=== PATIENT | female | born 1995 | race Caucasian/White ===

== ENCOUNTER 2018-01-08 10:26 | Inpatient (IN) | payer BC ==
[2018-01-08] MEDS ORDERED: Ondansetron HCl/PF 4 MG/2 ML Vial ONE (10:58)
[2018-01-08] MEDS ORDERED: Fentanyl 100 MCG/2 ML VIAL ONE (10:58)
[2018-01-08 11:16] LABS: ALT (SGPT) 11 U/L (8-55); AST (SGOT) 18 U/L (5-34); Albumin 3.5 g/dL (3.5-5.0); Alkaline Phosphatase 56 U/L (40-150); Anion Gap 14 mmol/L (10-20); BUN (Urea Nitrogen) 5 mg/dL (7.0-18.7); Bilirubin, Total 0.3 mg/dL (0.2-1.2); Calc. Creatinine Clearance 0 mL/min (70-130); Calcium 8.7 mg/dL (7.8-10.44); Carbon Dioxide 16 mmol/L (22-29); Chloride 108 mmol/L (98-107); Estimated GFR-MDRD Greater than 90; Globulin 3.1 g/dL (2.4-3.5); Glucose 87 mg/dL (70-105); Lipase 14 U/L (8-78); Potassium 3.9 mmol/L (3.5-5.1); Protein, Total 6.6 g/dL (6.0-8.3); Sodium 134 mmol/L (136-145)
[2018-01-08 11:20] LABS: Bilirubin Negative (Negative); Blood, Urine Negative (Negative); Glucose, Urine (Dipstick) Negative (Negative); Leukocyte Negative (Negative); Nitrite Negative (Negative); Protein, Urine (Dipstick) Negative (Neg-Trace); Urobilinogen 0.2 mg/dL (0.2-1.0)
[2018-01-08 11:22] LABS: Clarity CLEAR (Clear)
[2018-01-08 11:26] LABS: #Eosinphils 0.1 thou/uL (0.0-0.7); #Lymphocytes 2.8 thou/uL (1.20-3.40); #Monocytes 0.5 thou/uL (0.11-0.59); #Neutrophils 8.3 thou/uL (1.40-6.50); %Basophils 0.2 % (0.0-1.0); %Eosinophils 0.8 % (0.0-10.0); %Lymphocytes 23.6 % (21.0-51.0); %Monocytes 4.4 % (0.0-10.0); Hemoglobin 11.6 g/dL (12.0-16.0); Mean Corpuscular HGB CONC 35.4 g/dL (32.0-36.0); Mean Corpuscular Hemoglobin 32.2 pg (27.0-31.0); Mean Platelet Volume 8.1 fL (7.4-10.4); Platelet Count 213 thou/uL (130-400); Red Blood Cell (RBC) Count 3.59 mill/uL (4.20-5.40); White Blood Cell (WBC) Count 11.7 thou/uL (4.8-10.8)
[2018-01-08] MEDS ORDERED: Acetaminophen 500 MG TAB PO PRN (11:42)
[2018-01-08] MEDS ORDERED: Ondansetron HCl/PF 4 MG/2 ML Vial IVP PRN (11:42)
[2018-01-08] MEDS ORDERED: levETIRAcetam 500 MG/100 ML PREMIX BAG ONE (12:00)
--- NOTE | 2018-01-08 13:55 | ULT ---
BILATERAL RENAL ULTRASOUND: Date: 01/08/18 HISTORY: Patient is 26 weeks by history. Right lower quadrant pain x1 day. FINDINGS: Real-time imaging of the right and left kidneys performed. The kidneys are normal in size. The right kidney measures 9.9 cm and the left kidney measures 10.6 cm in size. Some minimal right-sided hydrone phrosis. The left kidney also shows very minimal hydronephrosis. Bilateral ureteral jets are identifi ed. No signs of any cystic or solid mass. The bladder region appears unremarkable. IMPRESSION: Minimal hydronephrosis, right greater than left, which is fairly consistent with . Bilateral ureteral jets were visualized. POS: [facility]
--- NOTE | 2018-01-08 14:07 | PDOC.LDHP ---
Labor and Delivery H&P Chief complaint: abdominal pain HPI: 22 y/o G1 at 25w5d, patient of Dr. Poon at [facility], presents with RLQ pain and seizures. Pain started 3 days ago and has gradually worsened. She was being driven to the hospital when she had a seizure in the passenger seat. Her mother then called 911, who brought her here for evaluation. Patient has a history of seizures but it has been several weeks since her last. She is not on any medications for seizures this . She does not have a neurologist in town. Denies VB or LOF. Has had some decreased FM today. Has also had some difficulty with urination today. ROS neg for HEENT, cv, pulm, gi, gu, neuro, psych, skin, musculoskeletal or constitutional symptoms other than mentioned above. OB History Details: First Current complications: other (seizure disorder) Past Medical History: Seizure disorder - no meds Asthma - no meds Current medications: pre-varinder vitamins Previous surgical history: appendectomy, other (laparoscopy for endometriosis) Allergies/Adverse Reactions: Allergies Allergy/AdvReac Type Severity Reaction Status Date / Time No Known Allergies Allergy Unverified 01/08/18 12:01 Social history: none - Physical Exam Vital signs reviewed and normal: yes General: NAD, other (appears uncomfortable) Lungs: nonlabored breathing Abdomen: gravid Extremeties: no edema FHT: category 1 (150s, mod variability, + accels, no decels) [place] contractions every: irritability - Assessment 22 y/o G1 at 25w5d with abdominal pain and seizure. No e/o preeclampsia as BPs are all wnl. Seizure likely related to known seizure disorder. Ultrasound ( fetus and renal) unremarkable other than small ?fibroid. Labs essentially unremarkable. - Plan Plan: observation in L&D, informed consent obtained -: Continue monitoring and pain management for now. Neurology recommendation is Keppra 500mg BID. Will collect FFN at this time. NPO for now but will advance diet as tolerated.
--- NOTE | 2018-01-08 14:08 | ULT ---
OB ULTRASOUND: Date: 01/08/18 HISTORY: Patient is 26 weeks and has right-sided abdomen pain. FINDINGS: Real-time imaging of the pelvis was performed. This shows a single, viable intrauterine , wh ich is in a more breech presentation. Cervical canal length is 3.7 cm. The placenta is posterior in l ocation without evidence of previa. Amniotic fluid is adequate for this stage of . Amniotic fluid index is 12.1. Along the anterior uterine wall is a 2.8 cm hypoechoic area. This could potentially represent a contr action, but I think is more likely related to a fibroid. measurements are as follows: BPD: 6.0 cm, 24 weeks/4 days HC: 23.5 cm, 25 weeks/4 days AC: 20.9 cm, 25 weeks/3 days FL: 4.6 cm, 25 weeks/2 day heart rate is 136 beats/minute. IMPRESSION: 1. Single, viable intrauterine in a breech presentation. Overall measurements correspondin g to a gestational age of 25 weeks/3 days. Estimated date of delivery is 04/20/18. 2. Placenta which is posterior in location, without evidence of previa. POS: [facility]
--- NOTE | 2018-01-08 14:25 | CON ---
DATE OF CONSULTATION: 01/08/2018 CHIEF COMPLAINT: Seizures. HISTORY OF PRESENT ILLNESS: I was asked to see this patient by the ER physician for acute onset of seizures. History is mostly given by patient and her mother. The patient has had seizures since age 13 and she had multiple seizures including one visit to ER in 2012. The patient was transferred down to [place] at [facility] at age 15 per mother and she was even intubated at that time and she was diagnosed with pseudoseizures. Since then, they have not been seeing neurologist and she has continuously had seizures since age 17 again. 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 Patient has also noticed since her pregnancies, she has had increased frequency of seizures. She is brought today because she started to have abdominal pain [place] the [place]. Mother wanted to drive her because she did not trust 911 in that area. She started to drive and patient then passed out, woke up and then started to roll her eyes back and she had a generalized tonic clonic seizure. It was different from her normal seizures. The patient was then picked up by the EMS en route to the hospital. They were going to go to [facility] which is where her production line technician is. Even in the ambulance, the patient had seizures. The patient is noted to have generalized tonic clonic seizures, sometimes she mostly has tonic seizures per mother and she even stops breathing at times and stays very still during the tonic seizures. She has not been on any anti-seizure medicines since age 15 and has not been under the care of a neurologist either and she has had a prior appendectomy and they are concerned whether there is any possibility of pain in the abdomen due to some colitis versus kidney stone. PAST MEDICAL HISTORY: She is otherwise healthy and she is about 26 weeks . SOCIAL HISTORY: She lives with her family and recently she has moved back to this area from [place]. FAMILY HISTORY: Negative for any seizures or neurological illness. Both parents were in the room during this interview. Patient does not take any medications at home. Currently, she has been given pain medications as well as IV Keppra after my discussion with the ER doctor. LABORATORY DATA: White count 11.7, RBC 3.59, hemoglobin 11.6, platelets 213. Chemistry: Sodium 134, potassium 3.9, chloride 108, BUN 5, creatinine 0.60. UA is negative. REVIEW OF SYSTEMS: Pulmonary: Negative for cough or SOB. GI: Acute abdominal pain in her right lower quadrant. HEME: Negative for any bleeding diatheses. ENDOCRINE: Negative for DM or thyroid dysfunction. : Negative for any recent urinary infection. DERMATOLOGIC: Negative for rash. NEUROLOGIC: Positive for seizures. PSYCHIATRIC: Positive for anxiety. PHYSICAL EXAMINATION: VITAL SIGNS: As noted in the ER, she was stable. She was afebrile, temperature was 98.7, blood pressure was around 115/70 when I was in the room with her, pulse rate was about 73. GENERAL: Patient is uncomfortable holds onto the right lower quadrant of the abdomen. CHEST: Clear vesicular breathing. CARDIOVASCULAR: S1, S2 heard, no murmurs. ABDOMEN: uterus. NEUROLOGICAL: Higher intellectual function: She is oriented to time, place and person, appropriate conversation. Cranial nerves II-XII normal with normal visual forrester by confrontation method. Normal pupillary reaction, normal extraocular movements. No facial asymmetry , normal sensation of face bilaterally. Motor examination: Bulk normal, tone normal. Decreased effort with strength exam due to pain, but overall preserved strength in both upper and lower extremities. Muscle groups tested are iliopsoas, hamstrings, quadriceps, ankle dorsiflexion, plantar flexion, deltoid, biceps, triceps, wrist extension and flexion, finger extension and flexion bilaterally. DTR's positive at 1+in UL and LL. SENSORY: Normal touch, pinprick, proprioception, vibration and temperature. CEREBELLAR: Normal [id number]. [id number] cannot be performed due to pain and limitations due to . IMPRESSION: Patient is a 22-year-old lady who comes to the ER with seizures and abdominal pain. Patient with known seizures for a number of years with a prior diagnosis of nonepileptic seizures at age 15. She has not been under care of a neurologist or sought any medical care for her seizures since then due to this diagnosis of psychogenic seizures per mom, they were working on her stressors and things improved for 2 years. Her mother state she just has seizures whenever she is under stress and she passes out. The patient also noted some abnormal heart rate which she feels whenever she is passing out. Her neurological examination is normal today. It is difficult to confirm that these are pseudoseizures, but based on her patient's mother's description, these are generalized tonic seizures. At this time, due to high risk of , I would like to suggest if it is okay with the production line technician team to restart her on antiepileptic agent. Diagnosis is most consistent with Epilepsy with possible Non epilpetic seizures as a prior diagnosis. RECOMMENDATIONS: 1. Start her on Keppra 500 mg b.i.d. if okay with the production line technician. 2. Please obtain EEG in a.m. and I will have Dr. Atkinson follow up with you. 3. Please monitor for any further seizures and notify me if there are any new events overnight. BROCKD
[2018-01-08] MEDS: Lactated Ringer's 1,000 ML IV SCH ×2 (14:30→21:41)
[2018-01-08] MEDS: Promethazine HCl 25 MG/ML VIAL IM PRN (15:21)
[2018-01-08] MEDS: Butorphanol Tartrate 1 MG/ML VIAL SLOW IVP PRN ×2 (15:27→20:35)
[2018-01-08 15:32] VITALS: BMI 23.5
[2018-01-08 15:44] LABS: FFN Internal QC Analyzer PASS (PASS); FFN Internal QC Cassette PASS (PASS); Fetal Fibronectin Negative (Negative)
[2018-01-08] MEDS ORDERED: Zolpidem Tartrate 5 MG TAB PO PRN (20:27)
[2018-01-08] MEDS: levETIRAcetam 500 MG TAB PO SCH (21:00)
[2018-01-09] MEDS: Butorphanol Tartrate 1 MG/ML VIAL SLOW IVP PRN ×2 (05:49→11:35)
[2018-01-09] MEDS: Lactated Ringer's 1,000 ML IV SCH ×2 (05:50→13:51)
[2018-01-09] MEDS: Promethazine HCl 25 MG/ML VIAL IM PRN (05:56)
--- NOTE | 2018-01-09 07:47 | PDOC.EVN ---
Event Note - Event Note Event Note: S: Patient feeling much better this morning. Feels sore but not having the significant abdominal pain she had yesterday. Now feeling normal movement. Denies VB, LOF, ctx, or other concerns. O: AFVSS Gen - AAO, NAD Abd - gravid, nontender to palpation. No guarding or rebound. A/P: 22 y/o G1 at 25w6d with 1. Seziure - Neurology consulted - recommended EEG (ordered for this am) and Keppra 500mg BID. Patient with history of pseudoseizures for many years. Reportedly triggered by stress. 2. Abdominal pain - pain improved this morning. Had normal ultrasound of fetus and renal system yesterday. Has history of appendectomy. No obvious etiology for pain but possibly musculoskeletal in origin. Likely d/c after cleared by neurology to follow up with Dr. Poon at [facility].
[2018-01-09] MEDS: levETIRAcetam 500 MG TAB PO SCH ×2 (08:57→20:55)
--- NOTE | 2018-01-09 16:22 | PRG ---
DATE OF SERVICE: 01/09/2018 TIME OF SERVICE: 1545 hours. HISTORY OF PRESENT ILLNESS: The patient is a 1, para 0 at 25 weeks and [address] Shireen monroe at [facility], she was transported to the hospital yesterday by EMS with 3-day history of rig ht lower quadrant pain. She has a history of pseudoseizures and had seizure form activity while hipolito g driven to the hospital. The EMS showed up at the car and then brought the patient to [place]. The patient was originally not on any seizure medicine during this . During the hospitaliza tion, she has had no seizure form activity. Neurology consult was obtained. While they believe this is most likely pseudoseizure activity, it is possible that is generalized tonic clonic seizures and recommended start the patient on Keppra 500 b.i.d. An EEG has been performed; however, interpretatio n is not completed by Neurology. They were around later this evening. Preliminary report on it, how ever, there was seen to be a normal EEG. The patient's right lower quadrant pain waxes and wanes, bu t ranges between 4 and 7. The patient has remained afebrile throughout her visit. She had a renal u ltrasound which revealed bilateral ureteral jets with mild hydronephrosis, right greater than left an d a ultrasound revealing a 25-week 3-day fetus in breech presentation with normal amniotic flui d index, posterior placenta, and no previa. LABORATORY STUDIES: On admission revealed a white count was normal for at 11.7 with a norm al diff, hematocrit of 32.6%. Blood chemistry revealed mild hyponatremia, slightly low carbon dioxid e and slightly elevated chloride, again all of which would be normal for . There was a norm al creatinine, normal liver enzymes and urinalysis was completely negative. fibronectin was ne gative. Vital signs have been afebrile and stable throughout. The patient has had excellent urine o utput. PHYSICAL EXAMINATION: GENERAL: Today reveals a fundus measuring 25 cm. FHTs 130s to 140s. ABDOMEN: The patient has no rebound, mild guarding in the right lower quadrant; however, she is dist ractible. She has active bowel sounds in all quadrants. She has no CVA tenderness. EXTREMITIES: Without clubbing, cyanosis or edema. IMPRESSION: Right lower quadrant pain likely secondary to round ligament pain. The patient is statu s post appendectomy. The patient may also have some component of her pain related to mild physiologi c hydronephrosis of and possible scar tissue remaining from her appendectomy. PLAN: 1. Anticipate a normal interpretation of EEG by Neurology. 2. Anticipate discharge home on Keppra 500 b.i.d. 3. The patient encouraged to have close followup with Dr. Cristian Poon at [facility].
[2018-01-09] MEDS ORDERED: Mag-Al 1200 mg/1200 mg/30 ML UDCUP PO PRN (18:35)
[2018-01-09 18:44] LABS: #Lymphocytes 2.2 thou/uL (1.20-3.40); #Monocytes 0.4 thou/uL (0.11-0.59); #Neutrophils 7.2 thou/uL (1.40-6.50); %Basophils 0.5 % (0.0-1.0); %Eosinophils 0.5 % (0.0-10.0); %Lymphocytes 21.9 % (21.0-51.0); %Monocytes 4.4 % (0.0-10.0); %Neutrophils 72.7 % (42.0-75.0); Hemoglobin 11.2 g/dL (12.0-16.0); Mean Corpuscular HGB CONC 36.3 g/dL (32.0-36.0); Mean Platelet Volume 7.5 fL (7.4-10.4); Platelet Count 183 thou/uL (130-400); RBC Distribution Width 10.9 % (11.5-14.5)
[2018-01-09 19:06] LABS: AST (SGOT) 17 U/L (5-34); Anion Gap 12 mmol/L (10-20); BUN (Urea Nitrogen) 5 mg/dL (7.0-18.7); Calc. Creatinine Clearance 142 mL/min (70-130); Calcium 8.5 mg/dL (7.8-10.44); Carbon Dioxide 21 mmol/L (22-29); Chloride 107 mmol/L (98-107); Estimated GFR-MDRD Greater than 90; Glucose 87 mg/dL (70-105); Potassium 3.4 mmol/L (3.5-5.1); Sodium 137 mmol/L (136-145)
--- NOTE | 2018-01-09 19:18 | DIS ---
DATE OF ADMISSION: 01/08/2018 DATE OF DISCHARGE: 01/09/2018 Please see a progress note dictated approximately 1-1/2 hours ago. The EEG was interpreted by Dr. Jose Trujillo is within normal limits. The patient is discharged home on Keppra 500 p.o. b.i.d. and enc ouraged to have close followup with Dr. Uri Poon at [facility].
[2018-01-09] MEDS: Acetaminophen 325 MG TAB PO PRN (19:58)
[2018-01-09] MEDS: Ondansetron HCl/PF 4 MG/2 ML Vial IM PRN (20:00)
[2018-01-10] MEDS: Cyclobenzaprine 10 MG TAB PO PRN ×2 (01:16→08:16)
--- NOTE | 2018-01-10 01:29 | PRG ---
DATE OF SERVICE: 01/09/2018 TIME OF SERVICE: 2000 hours. The patient was discharged and was being rolled, taken out to her private vehicle with her mother and her boyfriend between at approximately 1800 hours. Without reported the patient "passed out" and had some seizure form-like activity in the lobby of the hospital immediately before proceeding to the doors to the outside. The patient was in a wheelchair. She did not fall out of the wheelchair. She did not lose control of her bowel or bladder. Reza moreno was called and the patient was respon sive by the time the code green team arrived. Please see code green documentation. Of note, the mary kiran's vital signs were stable throughout that event. The patient was brought back to Labor and Deli very and discharge was canceled. The patient has been on the labor and delivery unit and has had ano ther episode witnessed by myself of her "passing out." Of note, during the episode, the patient's pu lse remained stable between 85 and 92. PHYSICAL EXAMINATION: VITAL SIGNS: Her blood pressure was normal, her respiratory rate was 18-20, and her pulse ox was 93% -97%. The patient awoke about 5 minutes after passing out and was responsive about issues discussed with the patient's mother during her passing out spell. Exam, physically is unchanged, although the patient reports that her pain is 9/10. Of note, with 9/10 pain, the patient's pulse remains 90 or le ss. I discussed with the patient primary PRODUCTION QUALITY MANAGER, Dr. Cristian Poon at [facility] the issues and my concern s. Dr. Poon thinks the patient would be better served at [facility] in [place] with prob able epilepsy management unit surveillance and possible inpatient psychiatric consult services. He d oes not feel that a transfer to [facility] in [place] would be appropriate as it wo uld be lateral without any additional services being able to be provided. I agree with this assessme nt. I discussed with the patient's mother these issues as the patient and her boyfriend were both present . However, the patient really behaves somewhat incoherently and child-like at most when she has been interacted with, so the discussion is mostly with the patient's mother. I have explained to the mary kiran's mother that if the patient has an organic cause for her seizure-like activity, we are unable t o detect it in EEGs that are being performed immediately post-episodes. I explained that an epilepsy monitoring unit would be a location where EEGs, dairying such events would be more likely to fruit picker subtle EEG changes if such are present. I also explained that with a more advanced of possibl e etiology of the patient's pain might be more likely to gain yield that would lead to pain relief, a lthough I really feel like the patient's pain is round ligament in nature, perhaps with some scar tis tia and some mild discomfort associated with hydronephrosis of . I explained that with the ultrasound findings with bilateral ureteral jets and only mild hydronephrosis placing a ureteral sten t at this time would not be recommended. The patient on occasion will at like she is ready to leave, but then crawls back in bed after being taught to by her mother. Her mother understands and has exp ressed a willingness for transfer. Considering the holiday and weekend will initiate efforts at transfer on Tuesday and will check out with Dr. Jonh Locke, OB Hospitalist coming on at 0800 on Tuesday this plan forward. LABORATORY STUDIES: Repeated after the patient's return to labor and delivery from the [facility] te count is down to 10,000. Her hematocrit is 31% consistent with a little bit of hemodilution from her IV fluid. She is mildly hypokalemic at 3.4 although was 3.9, previously. Otherwise, all her bas e met is within normal limits and her AST is within normal limits as well. IMPRESSION: 1. Seizure-like activity, likely pseudoseizures/psychogenic seizures. No evidence of true epilepsy at this time. 2. Right lower quadrant pain without evidence of infectious or urinary obstructive process. 3. 25 weeks . PLAN: Continue overnight with clear liquid diet. Tylenol as needed for pain and proceed with probab le transferred to [facility] EMU and obstetric service on Tuesday.
[2018-01-10] MEDS: Acetaminophen 325 MG TAB PO PRN ×2 (03:22→07:53)
[2018-01-10] MEDS: Ondansetron HCl/PF 4 MG/2 ML Vial IM PRN (03:47)
[2018-01-10 05:46] LABS: Amphetamine Not Detected (NotDetected); Barbiturates Screen Not Detected (NotDetected); Benzodiazepine Screen Not Detected (NotDetected); Cocaine Metabolite Screen Not Detected (NotDetected); Medtox Control Line Valid? VALID (VALID); Medtox Reader # READER 4; Methadone Not Detected (NotDetected); Methamphetamine Not Detected (NotDetected); Opiate Screen Not Detected (NotDetected); Oxycodone Screen Not Detected (NotDetected); Phencyclidine (PCP) Not Detected (NotDetected); THC/Cannabinoid Screen Not Detected (NotDetected); Tricyclic Screen Not Detected (NotDetected)
[2018-01-10] MEDS ORDERED: Acetaminophen 650 MG Suppository PR PRN (07:47)
[2018-01-10 08:05] VITALS: BP 98/54; TEMP 98.3
[2018-01-10] MEDS: levETIRAcetam 500 MG TAB PO SCH (08:52)
--- NOTE | 2018-01-10 10:23 | EEG ---
Referring Physician: DR. PROMISE CORREA EEG # [id number] TEST TYPE: ROUTINE PORTABLE INPATIENT REPORT: AN EEG USING THE INTERNATIONAL TEN-TWENTY SYSTEM OF ELECTRODE PLACEMENT WAS PERFORMED. The waking background is a low amplitude 10 hertz Alpha frequency. The patient remained awake throughout the study. Hyperventilation and photic stimulation were unremarkable. No epileptiform features were seen. IMPRESSION: THIS IS A NORMAL AWAKE EEG. Paint Stock Clerk: BONIFACIO Dish Up Person: L[address]
[2018-01-10] MEDS ORDERED: Acetaminophen 500 MG TAB PO SCH (13:15)
--- NOTE | 2018-01-11 11:59 | DIS ---
DATE OF ENCOUNTER: 01/10/2018 DATE OF ADMISSION: 01/08/2018 ADMITTING DIAGNOSES: 1. Intrauterine at 26 weeks. 2. Abdominal pain. 3. Seizure activity. DISCHARGE DIAGNOSES: 1. Intrauterine at 26 weeks. 2. Abdominal pain. 3. Seizure activity. CONSULTATIONS: Neurology in the emergency room and admitted by INFORMATION TECHNOLOGY SECURITY MANAGER. PROCEDURES: EEG and ultrasound. HOSPITAL COURSE: The patient is a 22-year-old, recently moved about a month and a half ago from [facility] to our [facility] and presented to the emergency room after [facility] and seizure activity. The patient was admitted to the hospital for further ev aluation. During her ER visit, Neurology was consulted and the patient was evaluated. It was discov ered the patient has a history of pseudoseizures and had been under the care of a neurologist until t he age of 15 when this was confirmed after inpatient evaluation. The patient since that time has bee n off antiepileptics. After reviewing the history given by the family members, Neurology recommended starting the patient on Keppra 500 mg twice a day. The patient was further evaluated for abdominal pain including ultrasound, CBC, and physical exam. The patient was noted to have mild right-sided hy dronephrosis with no evidence of obstruction or stone, a normal white count and normal vital signs. EEG was performed and found to be also normal. On hospital day #2, the patient was en route for [facility] and had an episode resulting in a code green at the verge of exiting the hospital. The dischar ge was held and the patient was brought back to her room. At that point, the primary OB, Dr. Poon, was notified, who had recommended given the setting of a seizure disorder of some kind and the possib le potential psychological component was to refer the patient to [facility] where they louis ve in-hospital monitoring for epilepsy and have Psychiatry. This morning, when I came on duty, and r eviewed the records and received checked out from Dr. Souza, I went to the patient's room to share w hat I have learned and what our recommendations were. At that point in time, the family denied the p atient had any additional seizure activity apart from what was in the emergency room and in the car a nd questioned the need for Keppra and questioned the need for transfer to [facility] for further evaluation, as she has a diagnosis of pseudoseizures and does not believe she needs to be on any med ication. I called , the neurologist on duty, and shared their concerns over the phone to yanira parada his expert advice. had recommended continuing the patient on antiepileptic medications f or the foreseeable future, as a normal EEG does not rule out any underlying problem, as the event its elf has not been recorded. He also recommended following up with him in [address] Poon , her primary OB, and informed him of the sequence of events this morning. He was comfortable with h er being discharged to follow up with him as scheduled this . I shared these colleagues' rec ommendations and the family and the patient were amenable to those recommendations. The patient has agreed to continue taking Keppra 500 mg twice a day. She has agreed to follow up with in 6 weeks. She has agreed to follow up with Dr. Poon in 2 days. This morning, on initial evaluation, t he patient reported a pain level of 2/10 after taking Tylenol and a muscle relaxant, Flexeril. The albert luther's family and the patient are comfortable being discharged to home. She reports good pain cont rol on the medications being provided. She understands the concerns and the reasoning behind continu ing the Keppra at this time. I did ask the patient to reiterate the symptoms associated with her abdominal pain. The patient repo rts that her pain is on the right lower side, is always constant but much worse with activity and mov ement, rolling in the bed, walking, getting up from sitting, and other generalized movements. PHYSICAL EXAMINATION: MOST RECENT VITAL SIGNS: 98/55 is the blood pressure, heart rate is 78, respiratory rate of 18, temp erature 98.5. GENERAL: The patient appears to be in no acute distress. She has been sleeping and resting all morn ing upon my multiple visits to the room and does not appear to be in any acute distress. She is aler t and oriented. ABDOMEN: Gravid and soft. She does have tenderness to palpation with deviation of the uterus to the left and the right inguinal and lower pelvic region. EXTREMITIES: Nontender, nonedematous. GENITOURINARY EXAM: Has been deferred at this time. The patient is being discharged to home. She has an appointment to keep with Dr. Poon in 2 days and with in 6 weeks, she is to make an appointment. MEDICATIONS: Keppra 500 mg twice a day #60 with 1 refill, and Flexeril 10 mg 3 times a day p.r.n. #1 2, [facility] [place].
== END 2018-01-10 14:20 | disposition home health service (06) | DRG 781 ==
LOC: ERS 10:26 → OBSVTOIN 11:42 → L&D 11:42
PROVIDERS: ADMIT Obstetrics & Gynecology; ATTEND Obstetrics & Gynecology
PROC: 4A00X4Z Measurement of Central Nervous Electrical Activity, External Approach (ICD-10-PCS; principal; 2018-01-09)
DX: O99.352 Diseases of the nervous system complicating pregnancy, second trimester (principal); G40.909 Epilepsy, unspecified, not intractable, without status epilepticus; Z3A.26 26 weeks gestation of pregnancy; O26.892 Other specified pregnancy related conditions, second trimester; R10.9 Unspecified abdominal pain
CPT/HCPCS: 36415; 51701; 51702; 76770; 76805; 80048; 80053; 80306; 81003; 82731; 83690; 84450; 85025; 93005; 95816; 95819; 96361; 96365; 96375; A4353; J0595; J1953; J2405; J2550; J3010

== ENCOUNTER 2019-11-06 16:16 | Emergency (ER) | payer BC, SELFPAY ==
[2019-11-06 16:40] LABS: #Eosinphils 0.2 thou/uL (0.0-0.7); #Lymphocytes 2.1 thou/uL (1.20-3.40); #Monocytes 0.2 thou/uL (0.11-0.59); #Neutrophils 2.4 thou/uL (1.40-6.50); %Basophils 0.6 % (0.0-1.0); %Eosinophils 3.6 % (0.0-10.0); %Lymphocytes 42.4 % (21.0-51.0); %Monocytes 4.5 % (0.0-10.0); Hemoglobin 12.7 g/dL (12.0-16.0); Mean Corpuscular HGB CONC 34.8 g/dL (32.0-36.0); Mean Corpuscular Hemoglobin 31.2 pg (27.0-31.0); Mean Corpuscular Volume 89.5 fL (78.0-98.0); Mean Platelet Volume 8.3 fL (7.4-10.4); Platelet Count 209 thou/uL (130-400); RBC Distribution Width 10.8 % (11.5-14.5); Red Blood Cell (RBC) Count 4.06 mill/uL (4.20-5.40); White Blood Cell (WBC) Count 4.9 thou/uL (4.8-10.8)
[2019-11-06 16:57] LABS: Lactic Acid 2.8 mmol/L (0.5-2.2)
[2019-11-06 17:02] LABS: ALT (SGPT) 11 U/L (8-55); AST (SGOT) 11 U/L (5-34); Alkaline Phosphatase 45 U/L (40-110); Anion Gap 12 mmol/L (10-20); BUN (Urea Nitrogen) 10 mg/dL (7.0-18.7); Bilirubin, Total 0.7 mg/dL (0.2-1.2); Calc. Creatinine Clearance 0 mL/min (70-130); Calcium 8.6 mg/dL (7.8-10.44); Carbon Dioxide 19 mmol/L (22-29); Chloride 112 mmol/L (98-107); Estimated GFR-MDRD 88; Globulin 2.6 g/dL (2.4-3.5); Glucose 87 mg/dL (70-105); Potassium 3.4 mmol/L (3.5-5.1); Protein, Total 6.6 g/dL (6.0-8.3); Sodium 140 mmol/L (136-145)
[2019-11-06 17:23] LABS: Bilirubin Negative (Negative); Blood, Urine Negative (Negative); Clarity Clear (Clear); Glucose, Urine (Dipstick) Normal (Negative); Leukocyte 75 Leu/uL (Negative); Nitrite Negative (Negative); Protein, Urine (Dipstick) Negative (Neg-Trace); RBC/HPF 0-3 HPF (0-3); Squamous Epithelial 0-3 HPF (0-3); Urobilinogen Normal mg/dL (Less than 2); WBC/HPF 0-3 HPF (0-3)
[2019-11-06 17:24] LABS: Bacteria/HPF Rare-Few HPF (None Seen)
[2019-11-06 17:25] LABS: Pregnancy Test - Urine (BHCG) Negative (Negative); Pregu Control Background? CLEAR/WHITE (CLR/WHITE); Pregu Control Bar Appear? YES (CONTROL BAR); Specific Gravity 1.021 (1.002-1.036)
[2019-11-06 17:32] LABS: Medtox Reader # READER 1
[2019-11-06 17:33] LABS: Amphetamine Not Detected (NotDetected); Barbiturates Screen Not Detected (NotDetected); Benzodiazepine Screen Detected (NotDetected); Cocaine Metabolite Screen Not Detected (NotDetected); Medtox Control Line Valid? VALID (VALID); Methadone Not Detected (NotDetected); Methamphetamine Not Detected (NotDetected); Opiate Screen Not Detected (NotDetected); Oxycodone Screen Not Detected (NotDetected); Phencyclidine (PCP) Not Detected (NotDetected); THC/Cannabinoid Screen Not Detected (NotDetected); Tricyclic Screen Not Detected (NotDetected)
[2019-11-06] MEDS ORDERED: Ketorolac Tromethamine 30 MG/ML VIAL ONE (18:45)
--- NOTE | 2019-11-06 19:13 | CT ---
HEAD CT WITHOUT CONTRAST: 11/06/19 COMPARISON: 09/26/08 HISTORY: Seizure. FINDINGS: No parenchymal hemorrhage or extra-axial hematoma. No midline shift. Basilar cisterns are patent. Bra in volume is age appropriate. Cortical hargrove-white matter differentiation is preserved. No hydrocephal us. Minimal mucosal disease of the left sphenoid sinus. Adequate aeration of the mastoid air cells. I ntact calvarium. IMPRESSION: No acute intracranial process. POS: PPP
[2019-11-06] MEDS ORDERED: Acetaminophen/Codeine 30-300mg Tablet ONE (19:50)
== END 2019-11-06 21:20 | disposition home or self-care (01) ==
LOC: ERS 16:16
DX: M54.9 Dorsalgia, unspecified (principal); F41.9 Anxiety disorder, unspecified; R06.4 Hyperventilation; G43.909 Migraine, unspecified, not intractable, without status migrainosus; Z79.899 Other long term (current) drug therapy
CPT/HCPCS: 51701; 70450; 80053; 80306; 81003; 81015; 81025; 83605; 84146; 85025; 93005; 96374; J1885